=== PATIENT | male | born 1960 | race African-American/Black ===

== ENCOUNTER 2017-03-12 14:13 | Emergency (ER) | payer OTHER ==
[2017-03-12 14:18] VITALS: BP 118/66; PULSE 75; RESP 20; TEMP 98.1
--- NOTE | 2017-03-12 14:51 | ED ---
ENT HPI - General Chief complaint: ENT Stated complaint: Ear Pain Time Seen by Provider: 03/12/17 14:22 Source: patient, RN notes reviewed, old records reviewed Mode of arrival: ambulatory Limitations: no limitations - History of Present Illness Initial comments: Patient is a 57-year-old male presents emergency Department chief complaint bilateral ear pain. Patient reports that he was swimming in [place] few weeks, feels as if he is got 100 today. Has infection. He also reports that he knows he has significant wax and is here. States that there is been some discharge from the ear but is mostly waxy. Denies any fever, denies any nausea or vomiting. He otherwise feels well and no other complaints. Denies any sore throat cough or headache or rhinorrhea. - Related Data Home Medications Medication Instructions Recorded Confirmed Glimepiride [Amaryl] 2 mg PO BID 09/23/15 10/20/15 Propranolol HCl [Inderal] 60 mg PO DAILY 09/23/15 10/20/15 Gabapentin [Neurontin] 300 mg PO BID 10/15/15 10/20/15 Naproxen 500 mg PO Q12HR 10/15/15 10/20/15 Previous Rx's Medication Instructions Recorded Ibuprofen [Motrin] 600 mg PO Q6HR PRN #20 tab 07/04/16 Penicillin V Potassium [Pen Vee K] 500 mg PO TID #40 tab 07/04/16 Amoxic-Pot Clav 875-125Mg 1 tab PO Q12HR #20 tablet 03/12/17 [Augmentin 875-125] Fcpxprdj-Rljhahbvz-Gq Otic 2 drops BOTH EARS TID #1 bottle 03/12/17 [Cortisporin Otic Soln] Allergies Allergy/AdvReac Type Severity Reaction Status Date / Time No Known Allergies Allergy Verified 03/12/17 14:18 Review of Systems ROS Statement: Those systems with pertinent positive or pertinent negative responses have been documented in the HPI. ROS Other: All systems not noted in ROS Statement are negative. Past Medical History Past Medical History: Diabetes Mellitus, Hypertension, Musculoskeletal Disorder History of Any Multi-Drug Resistant Organisms: None Reported Past Surgical History: Hernia Repair Additional Past Surgical History / Comment(s): open reduction right knee, Past Anesthesia/Blood Transfusion Reactions: No Reported Reaction Past Psychological History: No Psychological Hx Reported Smoking Status: Never smoker Past Alcohol Use History: None Reported Past Drug Use History: None Reported - Past Family History Mother Family Medical History: No Reported History General Exam Limitations: no limitations General appearance: alert, in no apparent distress Head exam: Present: atraumatic, normocephalic, normal inspection Eye exam: Present: normal appearance, PERRL, EOMI. Absent: scleral icterus, conjunctival injection, periorbital swelling ENT exam: Present: normal exam, mucous membranes moist. Absent: TM's normal bilaterally (cerumen impaction bilateral TM ) Neck exam: Present: normal inspection. Absent: tenderness, meningismus, lymphadenopathy Respiratory exam: Present: normal lung sounds bilaterally. Absent: respiratory distress, wheezes, rales, rhonchi, stridor Cardiovascular Exam: Present: regular rate, normal rhythm, normal heart sounds. Absent: systolic murmur, diastolic murmur, rubs, gallop, clicks GI/Abdominal exam: Present: soft, normal bowel sounds. Absent: distended, tenderness, guarding, rebound, rigid Extremities exam: Present: normal inspection, full ROM, normal capillary refill. Absent: tenderness, pedal edema, joint swelling, calf tenderness Psychiatric exam: Present: normal affect, normal mood Skin exam: Present: warm, dry, intact, normal color. Absent: rash Course Vital Signs 03/12/17 14:15 Temperature 98.1 F Pulse Rate 75 Respiratory 20 Rate Blood Pressure 118/66 O2 Sat by Pulse 99 Oximetry Procedures - Ear Wax Removal Both Ears Ear Canal Irrigated by: RN, other (PA) Ear Canal Irrigated With: warm saline using syringe/angiocath Results: Re-examined: cerumen removed completely TM Visible: TM(s) erythematous Ear Canal: atraumatic Patient Tolerated Procedure: well, no complications Complications: no problems Medical Decision Making - Medical Decision Making Patient is a 57-year-old male presents emergency Department chief complaint bilateral ear pain. Patient reports that he was swimming in [place] few weeks, feels as if he is got 100 today. Has infection. He also reports that he knows he has significant wax and is here. States that there is been some discharge from the ear but is mostly waxy. Denies any fever, denies any nausea or vomiting. Patient has bilateral cerumen impaction. Patient ears were irrigated with saline, and cleared. Patient does have erythematous right TM after cerumen removal. Patient given ciprofloxacin drops and amoxicilin. Discussed follow up wtih PCP. Return parametets discussed. - Lab Data Lab Results 03/12/17 Range/Units 15:12 POC Glucose (mg/dL) 180 H (75-99) mg/dL POC Glu Mobile Game Engineer ID Julia Solorzano Disposition Clinical Impression: Cerumen impaction, Otitis media Disposition: HOME SELF-CARE Condition: Good Instructions: Cerumen Impaction (ED) Additional Instructions: Patient advised to take the antibiotics and use the drops as directed. Patient should try to keep the ears cleaned. Recommend following up with her primary care provider for further earwax removal every other month. Return to the emergency department if any alarming signs or symptoms occur. Prescriptions: Amoxic-Pot Clav 875-125Mg [Augmentin 875-125] 1 tab PO Q12HR #20 tablet Efdzyvod-Ntuuiexlk-Cv Otic [Cortisporin Otic Soln] 2 drops BOTH EARS TID #1 bottle Referrals: Sri Becerril MD [Primary Care Provider] - 1-2 days Time of Disposition: 15:09
[2017-03-12 15:16] LABS: Glucose,Whole Blood 180 mg/dL (75-99)
== END 2017-03-12 15:22 | disposition home or self-care (01) ==
LOC: EC 14:13
DX: H66.93 Otitis media, unspecified, bilateral (principal); H61.23 Impacted cerumen, bilateral; E11.9 Type 2 diabetes mellitus without complications; I10 Essential (primary) hypertension; Z79.84 Long term (current) use of oral hypoglycemic drugs; Z79.899 Other long term (current) drug therapy
CPT/HCPCS: 36415; 99283

== ENCOUNTER → 2018-01-16 | Outpatient (CLI) | payer OTHER ==
[2018-01-16 12:15] LABS: Basophils % (A) 1 %; Eosinophils # (A) 0.1 k/uL (0-0.7); Eosinophils % (A) 2 %; HGB 12.8 gm/dL (13.0-17.5); Lymphocytes # (A) 1.7 k/uL (1.0-4.8); Lymphocytes % (A) 41 %; MCH 28.8 pg (25.0-35.0); MCHC 31.9 g/dL (31.0-37.0); MCV 90.2 fL (80.0-100.0); Mean Platelet Volume 7.6; Monocytes # (A) 0.3 k/uL (0-1.0); Monocytes % (A) 8 %; Neutrophils % (A) 46 %; Platelet Count 216 k/uL (150-450); RBC 4.44 m/uL (4.30-5.90); RDW 13.8 % (11.5-15.5); WBC 4.2 k/uL (3.8-10.6)
[2018-01-16 12:43] LABS: Anion Gap 14 mmol/L; Blood Urea Nitrogen 15 mg/dL (9-20); Calcium 9.8 mg/dL (8.4-10.2); Carbon Dioxide 25 mmol/L (22-30); Chloride 107 mmol/L (98-107); Glucose 101 mg/dL (74-99); Potassium 4.8 mmol/L (3.5-5.1); Sodium 146 mmol/L (137-145)
== END | disposition home or self-care (01) ==
LOC: LABPAT 11:15
PROVIDERS: ATTEND Urology
DX: Z01.818 Encounter for other preprocedural examination (principal); Z01.812 Encounter for preprocedural laboratory examination; C61 Malignant neoplasm of prostate
CPT/HCPCS: 36415; 80048; 85025; 87086; 93005

== ENCOUNTER 2018-01-19 05:46 | Day surgery (SDC) | payer OTHER ==
[2018-01-12 11:42] VITALS: BMI 23.3
[~2018-01-19 05:46] MED LIST: HEPARIN SODIUM,PORCINE 5,000 UNIT/ML 1 ML VIAL SQ ONE; HYDROmorphone 0.5 MG/0.5 ML SYRINGE IVP PRN; MORPHINE SULFATE 2 MG/ML SYRINGE IV PRN; ONDANSETRON 4 MG/2 ML VIAL IVP PRN; ceFAZolin IN SWFI 2 GM/20 ML SYRINGE IVP ONE
[2018-01-19 06:25] VITALS: RESP 16
[2018-01-19] MEDS ORDERED: LIDOCAINE 1% 20 ML VIAL (10MG/ML) FOR IV START INTRADERMA ONE ×2 (06:33→06:34)
[2018-01-19] MEDS: LACTATED RINGERS 1,000 ML IV SCH (06:33)
[2018-01-19 06:37] LABS: Glucose,Whole Blood 158 mg/dL (75-99)
[2018-01-19] MEDS ORDERED: BUPIVACAINE (PF) 0.5% 30 ML VIAL SQ ONE (07:26)
[2018-01-19] MEDS ORDERED: ROCURONIUM BROMIDE 10 MG/ML 10 ML VIAL IV ONE (07:33)
[2018-01-19] MEDS ORDERED: MIDAZOLAM 2 MG/2 ML VIAL ONE (07:33)
[2018-01-19] MEDS ORDERED: fentaNYL (PF) 50 MCG/ML 2 ML AMP ONE (07:33)
[2018-01-19] MEDS ORDERED: LIDOCAINE 1% INJ 10MG/ML (20 ML MDV) ONE (07:33)
[2018-01-19] MEDS ORDERED: ePHEDrine SULFATE/0.9% NACL/PF 50 MG/5 ML SYRINGE IV ONE (07:33)
[2018-01-19] MEDS ORDERED: NEOSTIGMINE 1 MG/ML 10 ML VIAL ONE (07:33)
[2018-01-19] MEDS ORDERED: SUCCINYLCHOLINE CHLORIDE 100 MG/5 ML SYR IV ONE (07:33)
[2018-01-19] MEDS ORDERED: PROPOFOL 10 MG/ML 20 ML VIAL IV ONE (07:33)
[2018-01-19] MEDS ORDERED: HYDROmorphone (PF) 1 MG/ML ONE (07:33)
[2018-01-19] MEDS ORDERED: GLYCOPYRROLATE 0.2 MG/ML 2 ML VIAL ONE (07:33)
--- NOTE | 2018-01-19 10:52 | P.OP ---
Date of Procedure: 01/19/18 Preoperative Diagnosis: Adenocarcinoma of the prostate, clinical stage TIc NX M0 Postoperative Diagnosis: Same Procedure(s) Performed: Bilateral Nerve Sparing Robotic-assisted Laparoscopic Prostatectomy (RALP) Anesthesia: DISHA Surgeon: Uriel Pat Meat Apprentice #1: Rigo Bear Estimated Blood Loss (ml): 150 IV fluids (ml): 1,200 Pathology: other (Prostate and seminal vesicles) Condition: stable Disposition: PACU Indications for Procedure: 57 yo BM with recently diagnosed intermediate volume Demetria 6/7 adenocarcinoma of the prostate. I had a detailed discussion with the patient regarding treatment versus active surveillance. He understands that in view of the Demetria 7 component found on repeat biopsies, he is a suboptimal candidate for continued active surveillance. He has thus elected to undergo a bilateral nerve sparing radical prostatectomy. He is aware of the risks of post-op erectile dysfunction and incontinence, as well as the possible need for adjuvant therapy. Operative Findings: No evidence of extraprostatic disease. Description of Procedure: The patient was taken in the operating room and placed in the dorsal lithotomy position, with his legs supported in Kobe stirrups. He was carefully positioned on a beanbag for stability. The abdomen and external genitalia were prepped and draped sterilely. A Jones catheter was inserted. The Veress needle was passed through the anterior abdominal wall immediately cephalad to the umbilicus, and insufflation was performed to a pressure of 20 mm Hg. Once insufflation was performed, the Veress needle was removed and a supraumbilical incision was made, through which a 12 mm camera port was placed. Under camera guidance, 3 8 mm robotic ports were placed, 2 on the left and one on the right. An additional 12 mm port was placed on the right lateral side for use as an social worker assistant port. A 5 mm port was placed to the right of the camera port for suction. The patient was placed in Trendelenburg position, and docking was then performed to the da Star system utilizing a 4-arm approach. The abdomen was examined. The sigmoid colon was mobilized out of the pelvis. The peritoneum was incised lateral to the medial umbilical ligaments bilaterally , exposing the pubis. The peritoneum was then incised across the midline, allowing the bladder flap to be taken down. The endopelvic fascia was opened bilaterally, and muscular attachments from the urogenital diaphragm were swept away from the prostate. The vesical neck was incised transversely, down to the lumen. The Jones catheter was brought out through the anterior vesical neck incision and was used for traction. The posterior aspect of the vesical neck was incised, such that the full-thickness of the vesical neck was divided. The anterior layer of the Denonvilliers fascia was incised, exposing the vas deferens. Each were isolated and divided. Next, each of the seminal vesicles were dissected away from adjacent tissues, and vascular attachments were cauterized and divided. The posterior leaf of Denonvilliers fascia was incised transversely, allowing entry into the plane between the prostate and rectum. With lateral spreading, this plane was developed down to the apex. This exposed the lateral vascular pedicles bilaterally. These were clipped and divided in an antegrade fashion, down to the apex. The plane of dissection was immediately adjacent to the prostate to preserve the neurovascular bundles. The use of electrocautery was avoided to prevent thermal damage to the nerves. The remaining apical attachments were swept away from the prostate. The dorsal venous complex was incised, as well as periurethral tissue. At this point, only the urethra remained intact. This was transected immediately distal to the prostatic apex using cold scissors. The specimen was placed within a specimen bag. The dorsal venous complex was sutured using a V-Loc suture in a running fashion. A second V-Loc suture was then used to place the Edmundo stitch, incorporating the rhabdosphincter and the edge of Denonvilliers fascia. This allowed the bladder to be taken down to the urethra, leaving the vesical neck immediately adjacent to the urethra. The vesicourethral anastomosis was then performed using a V-Loc suture in a running fashion. After completing the anastomosis, an 18-Malaysian Jones catheter was placed and approximately 150 mL of 0.9 normal saline were instilled into the bladder. No extravasation of irrigant from the vesicourethral anastomosis was noted. A small amount of oozing was noted from the vascular pedicles, so Surgicel was placed bilaterally. The patient was returned to the supine position. Undocking was performed, and the specimen bag sutures were passed through the camera port. After removing all the ports and allowing all of the CO2 to be released from the peritoneal cavity, the camera port incision was enlarged to allow removal of the surgical specimen. The fascia of this incision was then closed using 0 Vicryl suture in an interrupted [id number] fashion. Each of the skin incisions were then closed using 4-0 Monocryl suture in a subcuticular fashion. Marcaine was injected at each of the incision sites. Dermabond was applied to each incision. The Jones catheter was connected to gravity drainage. All sponge and needle counts were correct. The patient tolerated the procedure well was taken to the recovery room in stable condition.
[2018-01-19] MEDS ORDERED: ONDANSETRON 4 MG/2 ML VIAL IVP PRN (10:53)
[2018-01-19] MEDS ORDERED: KETOROLAC 30 MG/ML 1 ML VIAL IVP PRN (10:53)
[2018-01-19 11:25] LABS: Glucose,Whole Blood 235 mg/dL (75-99)
[2018-01-19] MEDS ORDERED: INSULIN ASPART 100 UNIT/ML 1 ML 10 ML VIAL SQ ONE (11:36)
[2018-01-19] MEDS ORDERED: traMADol 50 MG TAB PO PRN (12:36)
[2018-01-19] MEDS: HYDROmorphone 0.5 MG/0.5 ML SYRINGE IVP PRN (13:23)
[2018-01-19] MEDS: DEXTROSE 5%-0.45% NACL 1,000 ML IV SCH (13:26)
[2018-01-19] MEDS: INSULIN ASPART 100 UNIT/ML 1 ML 10 ML VIAL SQ SCH ×3 (14:38→21:13)
[2018-01-19 16:58] LABS: Glucose,Whole Blood 206 mg/dL (75-99)
[2018-01-19] MEDS: metFORMIN 500 MG TAB PO SCH (18:31)
[2018-01-19] MEDS ORDERED: ATORVASTATIN 80 MG TAB PO SCH (19:00)
[2018-01-19 20:37] LABS: Glucose,Whole Blood 234 mg/dL (75-99)
[2018-01-19] MEDS: HEPARIN SODIUM,PORCINE 5,000 UNIT/ML 1 ML VIAL SQ SCH (21:13)
[2018-01-20] MEDS: HYDROmorphone 0.5 MG/0.5 ML SYRINGE IVP PRN ×2 (00:54→08:01)
--- NOTE | 2018-01-20 06:28 | P.DS ---
Providers Attending physician: Uriel Pat Primary care physician: [facility] Course: The patient was brought in for radical prostatectomy 01/19/2018. He underwent this without difficulty. Postoperatively his pain was under control. His wound looks good. His urine is clear. He is tolerating a regular diet. He will ambulate. If he does well he'll be discharged home later today. He'll resume his home medications. Medium prescription of [place] for 3 days. He'll follow-up in the office in 10 days for catheter removal. Pathology report pending. Condition is good. Patient Condition at Discharge: Good Plan - Discharge Summary Discharge Rx Participant: No New Discharge Prescriptions: New Hydrocodone/Acetaminophen [[place] 5-325] 1 tab PO Q4HR PRN 3 Days #18 tab PRN Reason: Pain Control No Action Insulin NPL/Insulin Lispro [humaLOG MIX 75-25 VIAL] 50 unit SQ QAM traMADol HCL [Ultram] 50 mg PO TID PRN PRN Reason: Pain Atorvastatin [Lipitor] 80 mg PO 1900 metFORMIN HCL [Glucophage] 500 mg PO BID Aspirin [Adult Low Dose Aspirin EC] 81 mg PO DAILY Vitamin B (Dose Unknown) 1 cap PO QMONTH Insulin NPL/Insulin Lispro [humaLOG MIX 75-25 VIAL] 25 unit SQ W/SUPPER Discharge Medication List Aspirin [Adult Low Dose Aspirin EC] 81 mg PO DAILY 01/12/18 [History] Atorvastatin [Lipitor] 80 mg PO 1900 01/12/18 [History] Insulin NPL/Insulin Lispro [humaLOG MIX 75-25 VIAL] 25 unit SQ W/SUPPER [History] Insulin NPL/Insulin Lispro [humaLOG MIX 75-25 VIAL] 50 unit SQ QAM 01/12/18 [ History] Vitamin B (Dose Unknown) 1 cap PO QMONTH 01/12/18 [History] metFORMIN HCL [Glucophage] 500 mg PO BID 01/12/18 [History] traMADol HCL [Ultram] 50 mg PO TID PRN 01/12/18 [History] Hydrocodone/Acetaminophen [[place] 5-325] 1 tab PO Q4HR PRN 3 Days #18 tab [Rx] Follow up Appointment(s)/Referral(s): Uriel Pat MD [STAFF PHYSICIAN] - 01/29/18 Activity/Diet/Wound Care/Special Instructions: Home with Jones Discharge Disposition: HOME SELF-CARE
[2018-01-20 07:56] LABS: Glucose,Whole Blood 166 mg/dL (75-99)
[2018-01-20] MEDS: INSULIN ASPART 100 UNIT/ML 1 ML 10 ML VIAL SQ SCH ×2 (07:56→12:59)
[2018-01-20 07:59] VITALS: BP 108/65; TEMP 98.2
[2018-01-20 08:00] VITALS: PULSE 82
[2018-01-20] MEDS: DEXTROSE 5%-0.45% NACL 1,000 ML IV SCH ×3 (08:18→11:27)
[2018-01-20] MEDS: HEPARIN SODIUM,PORCINE 5,000 UNIT/ML 1 ML VIAL SQ SCH (08:21)
[2018-01-20] MEDS: metFORMIN 500 MG TAB PO SCH (08:21)
[2018-01-20 09:44] LABS: Glucose,Whole Blood 164 mg/dL (75-99)
[2018-01-20 12:15] LABS: Glucose,Whole Blood 200 mg/dL (75-99)
== END 2018-01-20 14:25 | disposition home or self-care (01) ==
LOC: OR 05:46 → 3SUR 11:00 → OR 01-20 14:25
PROVIDERS: ATTEND Urology
DX: C61 Malignant neoplasm of prostate (principal); C79.11 Secondary malignant neoplasm of bladder; I10 Essential (primary) hypertension; E78.5 Hyperlipidemia, unspecified; E11.9 Type 2 diabetes mellitus without complications; Z79.82 Long term (current) use of aspirin; Z79.4 Long term (current) use of insulin; Z79.899 Other long term (current) drug therapy
CPT/HCPCS: 55866; 86900; 86901; 86850; 88309; J2250; J1644 ×2; J2710; J2405; J2001; J3010; J1885; J1170 ×3; J0330; J2704; J0690

== ENCOUNTER → 2018-03-12 | Outpatient (CLI) | payer OTHER | END | disposition home or self-care (01) | LOC: LABWHC1 11:35 | PROVIDERS: ATTEND Urology | DX: C61 Malignant neoplasm of prostate (principal) | CPT/HCPCS: 36415; 84153 ==

== ENCOUNTER → 2018-12-17 | Outpatient (CLI) | payer OTHER | END | disposition home or self-care (01) | LOC: LABWHC1 09:15 | PROVIDERS: ATTEND Urology | DX: C61 Malignant neoplasm of prostate (principal) | CPT/HCPCS: 36415; 84153 ==

== ENCOUNTER 2019-07-30 15:08 | Emergency (ER) | payer OTHER ==
[2019-07-30 15:18] VITALS: BP 144/69; PULSE 75; RESP 18; TEMP 98.2
[2019-07-30] MEDS ORDERED: ACET/COD 300 MG/30 MG STARTER PACK 6 TAB BTL PO STA (15:22)
--- NOTE | 2019-07-30 15:23 | ED ---
ENT HPI - General Chief complaint: Dental/Oral Stated complaint: Abcess tooth Time Seen by Provider: 07/30/19 15:19 Source: patient, RN notes reviewed Mode of arrival: ambulatory Limitations: no limitations - History of Present Illness Initial comments: 58-year-old male presents emergency department chief complaint of dental pain. Patient has left upper dental pain he states he has a known bad tooth there has not contacted dentist. Patient had multiple deep FOR similar reasons. Patient denies fevers or chills. He has mild pain on alleviated with [id number] Tylenol. - Related Data Home Medications Medication Instructions Recorded Confirmed Aspirin [Adult Low Dose Aspirin EC] 81 mg PO DAILY 01/12/18 01/12/18 Atorvastatin [Lipitor] 80 mg PO 1900 01/12/18 01/12/18 Insulin NPL/Insulin Lispro 25 unit SQ W/SUPPER 01/12/18 01/12/18 [humaLOG MIX 75-25 VIAL] Insulin NPL/Insulin Lispro 50 unit SQ QAM 01/12/18 01/12/18 [humaLOG MIX 75-25 VIAL] Vitamin B (Dose Unknown) 1 cap PO QMONTH 01/12/18 01/19/18 metFORMIN HCL [Glucophage] 500 mg PO BID 01/12/18 01/12/18 traMADol HCL [Ultram] 50 mg PO TID PRN 01/12/18 01/12/18 Previous Rx's Medication Instructions Recorded Hydrocodone/Acetaminophen [[place] 1 tab PO Q4HR PRN 3 Days #18 tab 01/20/18 5-325] Ibuprofen [Motrin] 600 mg PO Q8HR PRN #30 tab 07/30/19 Penicillin V Potassium [Pen Vee K] 500 mg PO QID #40 tablet 07/30/19 Allergies Allergy/AdvReac Type Severity Reaction Status Date / Time No Known Allergies Allergy Verified 07/30/19 15:15 Review of Systems ROS Statement: Those systems with pertinent positive or pertinent negative responses have been documented in the HPI. ROS Other: All systems not noted in ROS Statement are negative. Past Medical History Past Medical History: Diabetes Mellitus, Hyperlipidemia, Hypertension, Prostate Disorder Additional Past Medical History / Comment(s): prostate cancer History of Any Multi-Drug Resistant Organisms: None Reported Past Surgical History: Hernia Repair, Orthopedic Surgery, Prostate Surgery Additional Past Surgical History / Comment(s): ORIF rt knee Past Anesthesia/Blood Transfusion Reactions: No Reported Reaction Past Psychological History: No Psychological Hx Reported Smoking Status: Never smoker Past Alcohol Use History: None Reported Past Drug Use History: Marijuana - Past Family History Mother Family Medical History: No Reported History General Exam Limitations: no limitations General appearance: alert, in no apparent distress Head exam: Present: atraumatic, normocephalic, normal inspection Eye exam: Present: normal appearance, PERRL, EOMI. Absent: scleral icterus, conjunctival injection, periorbital swelling ENT exam: Present: mucous membranes moist, TM's normal bilaterally, normal external ear exam. Absent: normal oropharynx (Edentulous, dental [place] no left upper no drainable abscess) Neck exam: Present: normal inspection, full ROM. Absent: tenderness, meningismus, lymphadenopathy Respiratory exam: Present: normal lung sounds bilaterally. Absent: respiratory distress, wheezes, rales, rhonchi, stridor Cardiovascular Exam: Present: regular rate, normal rhythm, normal heart sounds. Absent: systolic murmur, diastolic murmur, rubs, gallop, clicks Course Vital Signs 07/30/19 15:16 Temperature 98.2 F Pulse Rate 75 Respiratory 18 Rate Blood Pressure 144/69 O2 Sat by Pulse 98 Oximetry Medical Decision Making - Medical Decision Making Patient we treated first with early dental abscess, dental infection Pen-Vee K. Patient is advised to call his dentist tomorrow return for any worsening symptoms. Disposition Clinical Impression: Dental abscess Disposition: HOME SELF-CARE Condition: Stable Instructions (If sedation given, give patient instructions): Dental Abscess (ED) Additional Instructions: Please return to the Emergency Department if symptoms worsen or any other concerns. Prescriptions: Ibuprofen [Motrin] 600 mg PO Q8HR PRN #30 tab PRN Reason: Pain Penicillin V Potassium [Pen Vee K] 500 mg PO QID #40 tablet Is patient prescribed a controlled substance at d/c from ED?: No Referrals: Sri Becerril MD [Primary Care Provider] - 1-2 days Time of Disposition: 15:23
== END 2019-07-30 15:45 | disposition home or self-care (01) ==
LOC: EC 15:08
DX: K04.7 Periapical abscess without sinus (principal); E11.9 Type 2 diabetes mellitus without complications; E78.5 Hyperlipidemia, unspecified; I10 Essential (primary) hypertension; Z85.46 Personal history of malignant neoplasm of prostate; Z79.4 Long term (current) use of insulin; Z79.899 Other long term (current) drug therapy; Z79.82 Long term (current) use of aspirin
CPT/HCPCS: 99282